=== PATIENT | male | born 1975 | race Caucasian/White ===

== ENCOUNTER 2018-01-25 12:21 | Inpatient (IN) | payer OTHER ==
[~2018-01-25] VITALS: Ht 190.5 cm; Wt 79.4 kg
--- NOTE | 2018-01-25 13:34 | ED PSYCHIATRIC COMPLAINT ---
History of Present Illness General Chief Complaint: General Adult Stated Complaint: BENZO WITHDRAWL Source: patient, family Exam Limitations: no limitations Vital Signs & Intake/Output Vital Signs & Intake/Output Vital Signs Date Time Temp Pulse Resp B/P B/P Pulse O2 O2 Flow FiO2 Mean Ox Delivery Rate 01/26 2044 98.1 88 20 144/79 01/26 2044 98.1 88 20 144/79 97 Room Air 01/25 1833 98.4 91 18 148/78 01/25 183 98.4 91 18 148/78 99 Room Air 01/25 1616 99.0 88 20 143/62 01/25 1616 99.0 88 20 143/62 96 Room Air 01/25 1442 98 Room Air 01/25 1229 97.8 105 20 159/105 96 Room Air Allergies Coded Allergies: NO KNOWN ALLERGIES (03/15/14) Reconcile Medications Albuterol Sulfate (Proventil Hfa) 90 MCG HFA.AER.AD 2 PUF INH Q4 PRN SHORTNESS OF BREATH (Reported) Budesonide/Formoterol Fumarate (Symbicort 160-4.5 Mcg Inhaler) 160 MCG-4.5 MCG/ ACTUATION HFA.AER.AD 2 PUF INH BID BREATHING PROBLEMS (Reported) Bupropion HCl (Bupropion XL) 150 MG TAB.ER.24H 1 TAB PO QAM MENTAL HEALTH ( Reported) Dextroamphetamine/Amphetamine (Dextroamp-Amphetamin 30 MG Tab) 30 MG TABLET 1 TAB PO BID MENTAL HEALTH (Reported) Triage Note: PT TO ED WITH GIRLFRIEND FOR BENZO DETOX. GIRLFRIEND STATES PT HAS BEEN HALLUCINATING AND CONFUSED. PT APPEARS SHAKY, FLIGHT OF IDEAS, HYPERVERBAL. PT WAS TAKING PRESCRIBED VALIUM FOR 10 YEARS UNTIL HIS PRESCRIBING MD LOST HIS PRIVILAGES. PT HAS BEEN TAKING A "BENZO SUPPLEMENT" HE BOUGHT OFF LINE. DENIES ANY OTHER DRUG USE, OR ETOH USE. DENIES SI/HI. Triage Nurses Notes Reviewed? yes Onset: Gradual Duration: getting worse Timing: recent history Severity: severe Severity Numbers: 7 HPI: Patient is a 42-year-old male with a past medical history of anxiety, ADHD and asthma who presents emergency room with cough and for concerns of benzodiazepine withdrawal where history is limited due to patient being a poor historian however both girlfriend and patient state that for over 10 years he was prescribed benzodiazepine for his anxiety however over a year ago his provider lost privileges to prescribed his medication where he started to begin supplementing and buying over the Internet ESTAZOLAM and which one week ago he tried to re-purchase this medication however the website no longer exists where patient has not been taking his medication where 3 days ago patient started to develop worsening anxiety, PALPITATIONS, intermittent auditory hallucinations tremors insomnia He states that the auditory hallucinations are telling him to harm himself Girlfriend also states that he has been acting strange and confirmed story Denies any alcohol use or any other illicit drug use Denies any homicidal ideation (Victor Manuel Walker) Past History Travel History Traveled to [place] past 21 day No Medical History Any Pertinent Medical History? see below for history Respiratory: asthma Psychiatric: anxiety, ADHD Surgical History Surgical History: non-contributory Psychosocial History What is your primary language [place] Tobacco Use: Current Daily Use Daily Tobacco Use Amount/Type: =< 4 Cigarettes daily ETOH Use: occasional use Illicit Drug Use: benzodiazepines Family History Hx Contributory? No (Victor Manuel Walker) Review of Systems Review of Systems Constitutional: Reports: no symptoms. EENTM: Reports: no symptoms. Respiratory: Reports: see HPI. Cardiovascular: Reports: see HPI. GI: Reports: no symptoms. Genitourinary: Reports: no symptoms. Musculoskeletal: Reports: no symptoms. Skin: Reports: no symptoms. Neurological/Psychological: Reports: see HPI, anxiety. Hematologic/Endocrine: Reports: no symptoms. Immunologic/Allergic: Reports: no symptoms. All Other Systems: Reviewed and Negative (Victor Manuel Walker) Physical Exam Physical Exam General Appearance: anxious Head: atraumatic Eyes: Bilateral: normal appearance, PERRL, EOMI. Ears, Nose, Throat: normal pharynx, normal ENT inspection Neck: normal inspection, full range of motion Respiratory: no respiratory distress Cardiovascular: tachycardia Neurological/Psychiatric: alert, anxious Appearance/Memory/Insight: disheveled Thoughts/Hallucinations: TANGENTIAL SPEECH Skin: intact, normal color SAD PERSONS SAD PERSONS Response Value Male Sex? yes 1 Excessive Ethanol/Drug Use? yes 1 Rational Thinking Loss? yes 2 Social Support? has support 0 Total 4 SAD PERSONS Done? yes (Victor Manuel Walker) Progress Differential Diagnosis: drug intoxication, drug overdose, drug withdrawal, electrolyte abnormality, encephalitis, hypoglycemia, hypothyroidism, IC hem/mass /tumor, meningitis Plan of Care: Orders Procedure Date/time Status Regular Diet 01/26 B Active CBC WITHOUT DIFFERENTIAL 01/26 06 Active BASIC ELECTROLYTES PLUS BUN&CR 01/26 06 Active PSYCHIATRIC CONSULT 01/25 2224 Active SOCIAL WORK CONSULT 01/25 222 Active CIWA 01/25 2215 Active Pathway - chart 01/25 221 Active House Staff 01/25 221 Active SOCIAL WORK CONSULT 01/25 221 Active Patient Data 01/26 2128 Active ED Holding Orders 01/25 1946 Active Admit to inpatient 01/25 194 Active Vital Signs 01/25 194 Active Code Status 01/25 194 Active ED CRISIS PSYCH CONSULT 01/25 1900 Active CIWA 01/25 1516 Active Add-on Test (ER Only) 01/25 1452 Active EKG 01/25 1452 Active Intake & Output 01/25 1442 Active TROPONIN LEVEL 01/25 1425 Complete URINE DRUG SCREEN FOR ER ONLY 01/25 1356 Complete ACETOMINOPHEN 01/25 1356 Complete SALICYLATE 01/25 1356 Complete ETHANOL 01/25 1356 Complete COMPREHENSIVE METABOLIC PANEL 01/25 1356 Complete CBC WITHOUT DIFFERENTIAL 01/25 1356 Complete VTE Mechanical Prophylaxis 01/25 UNK Active Vital Signs 01/25 UNK Active PSYCHIATRIC CONSULT 01/25 UNK Active Current Medications Sig/Jamey Start time Last Medication Dose Stop Time Status Admin Enoxaparin Sodium 40 MG DAILY 01/26 0900 AC (Lovenox) Diazepam 10 MG Q6 01/25 2359 UNVr (Valium) Clonidine 0.1 MG TID PRN 01/25 2230 UNVr (Catapres) Sodium Chloride 1,000 ML Q13H 01/25 2230 UNVr (Normal Saline 0.9%) 01/26 1129 Diazepam 10 MG ONCE ONE 01/25 194 CAN (Valium) 01/25 194 Laboratory Tests 01/25/18 1547: Urine Opiates Screen < 100, Methadone Screen 81, Barbiturate Screen < 60, Ur Phencyclidine Scrn < 6.00, Amphetamines Screen 518, U Benzodiazepines Scrn < 85, Urine Cocaine Screen < 50, Urine Cannabis Screen < 5.00 01/25/18 1425: Anion Gap 12, Estimated GFR > 60, BUN/Creatinine Ratio 26.3 H, Glucose 102 H, Calcium 9.5, Total Bilirubin 1.1, AST 66 H, ALT 31, Alkaline Phosphatase 49, Troponin I 0.04, Total Protein 7.8, Albumin 4.6, Globulin 3.2, Albumin/Globulin Ratio 1.4, CBC w Diff MAN DIFF ORDERED, RBC 4.19 L, MCV 98.3 H, MCH 33.5 H, MCHC 34.1, RDW 13.7, MPV 8.1, Gran % 87.6 H, Lymphocytes % 7.5 L, Monocytes % 4.6, Eosinophils % 0, Basophils % 0.3, Absolute Granulocytes 11.2 H, Absolute Lymphocytes 1.0 L, Absolute Monocytes 0.6, Absolute Eosinophils 0, Absolute Basophils 0, Platelet Estimate ADEQUATE, Normocytic RBCs VERIFIED, Normochromic RBCs VERIFIED, Salicylates < 1.0, Acetaminophen < 10.0 L, Serum Alcohol < 10.0 Patient upon initial presentation was anxious tachycardic and had tangential speech for concerns of withdrawal most likely benzodiazepines. After reevaluating the patient, the girlfriend states that she has been having intermittent episodes of auditory and visual hallucinations while in the emergency room in room 14. Reviewed all blood work and labs with patient and girlfriend NIH STROKE SCALE ZERO GAG REFLEX INTACT My suspicion of CVAs low CT scan was ordered however the time study technologist indicate that patient was having too much movements to get a valuable read and which they did not continue with the image. Case management reviewed the patient case in which Naomi approved admission for concerns of benzodiazepine withdrawal discussed admission with girlfriend and patient were aware agree Patient was given IV Ativan After patient was given IV Ativan his clinical condition worsens with more tangential speaking and wandering thoughts and which per history he has not taken his dextroamphetamine in a few days where I called the inpatient pharmacist who advised the equivalent IS Ritalin WHICH WILL BE ADMINISTERED. Crisis evaluated patient with psychiatrist indicates to the crisis team that they advised patient to be given Valium for the plan. Discussed plan and disposition with WHO IS AWARE AND AGREES. Initial ED EKG: normal p-waves, normal QRS complex, 82 BPM,NSR (Silas ESPARZA,Victor Manuel) Departure Departure Disposition: STILL A PATIENT Condition: Guarded Clinical Impression Primary Impression: Benzodiazepine withdrawal Secondary Impressions: Auditory hallucination Referrals: [facility],Hadley Cheema (PCP/Family) Departure Forms: Customer Survey General Discharge Information Admission Note Documentation of Exam: Documentation of any treatments & extenuating circumstances including Concerns Regarding Discharge (functional status, medication knowledge or non-compliance, living conditions, etc.) that warrant an admission rather than observation: [ Patient requires IV benzodiazepine psychiatric consultation case management consultation and repeat labs and close monitoring due to patient's concerning clinical presentation] (Victor Manuel Walker) Admission Note Spoke With: Christopher Mead MD Documentation of Exam: Documentation of any treatments & extenuating circumstances including Concerns Regarding Discharge (functional status, medication knowledge or non-compliance, living conditions, etc.) that warrant an admission rather than observation: [ ADMIT FOR BENZO DETOX IN ACTUE WITHDRAWAL WITH DELERIUM] PA/SENIOR UNIX ADMINISTRATOR Co-Sign Statement Statement: ED Attending supervision documentation- [X] I saw and evaluated the patient. I have also reviewed all the pertinent lab results and diagnostic results. I agree with the findings and the plan of care as documented in the PA's/SENIOR UNIX ADMINISTRATOR's documentation. X] I have reviewed the ED Record and agree with the PA's/SENIOR UNIX ADMINISTRATOR's documentation. [] Additions or exceptions (if any) to the PAs/SENIOR UNIX ADMINISTRATOR's note and plan are summarized below: [SEE ABOVE NOTE] ([facility],Dallas Foster) Critical Care Note Critical Care Note Critical Care Time: 30-74 min (Victor Manuel Walker)
[2018-01-25 14:32] LABS: ABSOLUTE BASOPHIL COUNT 0 /CUMM (0.0-0.2); ABSOLUTE EOSINOPHIL COUNT 0 /CUMM (0.0-0.7); ABSOLUTE GRANULOCYTE CT 11.2 /CUMM (1.4-6.5); ABSOLUTE MONOCYTE COUNT 0.6 /CUMM (0.10-0.60); BASOPHIL % 0.3 % (0.0-2.0); EOSINOPHIL % 0 % (0-5); GRANULOCYTE % 87.6 % (42.2-75.2); HEMATOCRIT 41.2 % (42-52); MEAN CORPUSCULAR HGB 33.5 PG (27.0-31.0); MEAN CORPUSCULAR HGB CONC 34.1 G/DL (33.0-37.0); MEAN CORPUSCULAR VOLUME 98.3 FL (80.0-94.0); MEAN PLATELET VOLUME 8.1 FL (7.4-10.4); PLATELET COUNT 265 /CUMM (130-400); RBC DISTRIBUTION WIDTH 13.7 % (11.5-14.5); RED BLOOD CELL CT 4.19 /CUMM (4.70-6.10); WHITE BLOOD CELL COUNT 12.8 /CUMM (4.8-10.8)
[2018-01-25] MEDS ORDERED: BUPROPION XL150 MG PO (14:33)
[2018-01-25] MEDS ORDERED: DEXTROAMP-AMPHE30 MG PO (14:33)
[2018-01-25] MEDS ORDERED: PROVENTIL HFA6.7 GM INH (14:34)
[2018-01-25] MEDS ORDERED: SYMBICORT 16010.2 GM INH (14:35)
[2018-01-25 16:16] VITALS: BP 143/62
--- NOTE | 2018-01-25 18:17 | CT SCAN REPORT ---
EXAMINATION: CT LIMITED OR FOLLOWUP CLINICAL INFORMATION: Altered mental status. Tangetial speaking. FINDINGS/TECHNIQUE/IMPRESSION: The patient was brought to the radiology Department for CT scan of the head. Lateral mechanical expert view of the head was obtained. Study could not be completed as patient was not able to cooperate, despite several attempts. Eventually the study was terminated for patient safety as per geospatial information technologist's notes. On mechanical expert image, reversal of cervical lordosis is noted.
[2018-01-25 18:33] VITALS: BP 148/78
--- NOTE | 2018-01-25 20:36 | History & Physical ---
Josephine Dodson 01/25/182030: General Information and HPI MD Statement: I have seen and personally examined CAMILA BECKER and documented this H& P. The patient is a 42 year old M who presented with a patient stated chief complaint of [Benzo withdrawal]. Source of Information: patient, family Exam Limitations: poor historian History of Present Illness: Mr. Sanchez is a 42yo M w/ PMH of asthma, ADHD/Anxiety, hx of chronic benzodiazepine use >10 years, questionable seizure disorder, presented to ER w/ visual/auditory hallucinations/not sleeping/SI that started about 4 days ago. He has been using Benzo >10 years and discontinued use due to his provider lost the privileges. After that he was trying to get alternative "benzo" online named Estazolam (1mg equivalent of 10mg Benzo per product description) for the past year until recently the online seller website closed down, and he had been off any Benzo for 1 week. Patient gradually developed tremors, anxiety, palpitations , insomnia, paranoia, diaphoresis, restlessless in the last 2 days, and was taken to ER. He appeared to be a poor historian during interaction and was not oriented to place, but to people and himself. Patient denied SI/HI although housestaff was told that he had SI upon ER presentation. Otherwise He had no other complaints. Part of history was taken from the girlfriend at bedside. During our clinical interaction, patient denied recent travel/sick contacts, fever/lightheadedness/night sweat/weight change/cough/SOB/Chest Pain/Abdominal pain/bowel movement or urinary abnormality, or other skin/musculoskeletal/ neurological/mood disorders, or dietary/appetite change. -Smoking: denied, but then stated to nurse that he was smoking 1PPD -Alcohol: denied -Rec Drugs: denied Allergies/Medications Allergies: Coded Allergies: NO KNOWN ALLERGIES (03/15/14) Home Med list Albuterol Sulfate (Proventil Hfa) 90 MCG HFA.AER.AD 2 PUF INH Q4 PRN SHORTNESS OF BREATH (Reported) Budesonide/Formoterol Fumarate (Symbicort 160-4.5 Mcg Inhaler) 160 MCG-4.5 MCG/ ACTUATION HFA.AER.AD 2 PUF INH BID BREATHING PROBLEMS (Reported) Bupropion HCl (Bupropion XL) 150 MG TAB.ER.24H 1 TAB PO QAM MENTAL HEALTH ( Reported) Dextroamphetamine/Amphetamine (Dextroamp-Amphetamin 30 MG Tab) 30 MG TABLET 1 TAB PO BID MENTAL HEALTH (Reported) Past History Travel History Traveled to [place] past 21 day No Medical History Respiratory: asthma Psychiatric: anxiety, ADHD Surgical History Surgical History: non-contributory Past Family/Social History Psychosocial History ETOH Use: occasional use Illicit Drug Use: benzodiazepines Review of Systems Review of Systems Constitutional: Reports: see HPI. Exam & Diagnostic Data Last 24 Hrs of Vital Signs/I&O Vital Signs Date Time Temp Pulse Resp B/P B/P Pulse O2 O2 Flow FiO2 Mean Ox Delivery Rate 01/25 1616 99.0 88 20 143/62 01/25 1616 99.0 88 20 14362 96 Room Air 01/25 1442 98 Room Air 01/25 1229 97.8 105 20 159/105 96 Room Air Intake & Output 01/25 1600 01/25 0800 01/25 0000 Intake Total 0 Output Total Balance 0 Intake, Oral 0 Patient 79.379 kg Weight Weight Estimated Measurement Method Physical Exam General Appearance Alert, Cooperative, No Acute Distress, appeared anxious and fidgty, oriented to self and people but not to setting Skin No Breakdown, No Significant Lesion, non-blanching rash on chest, attributed to shaving Skin Temp/Moisture Exam: Warm/Dry Sepsis Skin Exam (color): Normal for Ethnicity HEENT Atraumatic, PERRLA Neck Supple, No JVD Lymphatic Axillary nl, Cervical nl Cardiovascular Regular Rate Lungs Clear to Auscultation, Normal Air Movement Abdomen Normal Bowel Sounds, Soft, No Tenderness Neurological Strength at 5/5 X4 Ext, Normal Tone, Sensation Intact Extremities No Cyanosis, No Edema, Normal Pulses Last 24 Hrs of Labs/Hubert: Laboratory Tests 01/25/18 1547: Urine Opiates Screen < 100, Methadone Screen 81, Barbiturate Screen < 60, Ur Phencyclidine Scrn < 6.00, Amphetamines Screen 518, U Benzodiazepines Scrn < 85, Urine Cocaine Screen < 50, Urine Cannabis Screen < 5.00 01/25/18 1425: Anion Gap 12, Estimated GFR > 60, BUN/Creatinine Ratio 26.3 H, Glucose 102 H, Calcium 9.5, Total Bilirubin 1.1, AST 66 H, ALT 31, Alkaline Phosphatase 49, Troponin I 0.04, Total Protein 7.8, Albumin 4.6, Globulin 3.2, Albumin/Globulin Ratio 1.4, CBC w Diff MAN DIFF ORDERED, RBC 4.19 L, MCV 98.3 H, MCH 33.5 H, MCHC 34.1, RDW 13.7, MPV 8.1, Gran % 87.6 H, Lymphocytes % 7.5 L, Monocytes % 4.6, Eosinophils % 0, Basophils % 0.3, Absolute Granulocytes 11.2 H, Absolute Lymphocytes 1.0 L, Absolute Monocytes 0.6, Absolute Eosinophils 0, Absolute Basophils 0, Platelet Estimate ADEQUATE, Normocytic RBCs VERIFIED, Normochromic RBCs VERIFIED, Salicylates < 1.0, Acetaminophen < 10.0 L, Serum Alcohol < 10.0 Diagnostic Data EKG Results NSR w/ RBBB Assessment/Plan Assessment: On admission, Vitals: Stable afebrile, tachycardia 105 on presentation 96% on room air -CBC: Mild leukocytosis 12.8, H/H stable, -BMP: Unremarkable -Urine toxicology: Amphetamine 518 -EKG: NSR w/o significant ST-T abnormalities. Problem list/Assessment/Hospital Course: #Benzodiazepine detox #History of asthma, ADHD/anxiety #Mild leukocytosis, likely reactive #Questionable hx of seizure disorder (unknown type) - Admit to general medicine floor, vitals per protocol - Pending psych consult for management of ADHD/Benzo detox schedule - Pharm was contacted and we will start 10mg PO Valium q 6hours as no IV storage in hospital currently. WIll monitor for any sudden onset of clinical deterioration/symptoms - Clonidine PRN for tremors - Per CRISIS< will hold Ritalin or amphetamines as well during hospital stay. - Pending Social work consult - Sitter DVT prophylaxis Pharm PPX + ALPS Regular Diet Full Code As Ranked By This Provider Problem List: 1. Benzodiazepine withdrawal 2. Auditory hallucination Core Measures/Misc (05/10) Acute Coronary Syndrome ACS Diagnosis: No Congestive Heart Failure Congestive Heart Failure Diagnosis No Cerebrovascular Accident CVA/TIA Diagnosis: No VTE (View Protocol) VTE Risk Factors Age>40 No Mechanical VTE Prophylaxis d/t N/A MechProphylax Ordered No VTE Pharm Prophylaxis d/t NA PharmProphylax ordered Sepsis (View protocol) Sepsis Present: No If YES complete Sepsis Event Note If YES complete Sepsis Event Note Negar Valentine 01/26/18 0037: Core Measures/Misc (05/10) Sepsis (View protocol) If YES complete Sepsis Event Note If YES complete Sepsis Event Note Resident Review Statement Resident Statement: examined this patient, discussed with merchandising internship, agreed with merchandising internship, reviewed images Other Findings: Mr Becker is a 42 year old man w/ a PMHx of anxiety, chronic benzo use, asthma, ADHD, ? seizure disorder ( unclear type ) who was brought into the hospital with a chief concern of visual and auditory hallucinations that started a few days ago. He has been taking benzodiazepines over 10 years, and had to abruptly discontinue use due to his providers loss of privileges. Apparently, he has been taking an alternative synthetic benzo called estazolam for the past 1 year, that he bought it over the internet. Since, he couldnt find that drug anymore from the provider, he has not been taking any meds one week. He gradually developed, tremors, anxiety, palpitations, tremors, insomnia, paranoia , insomnia diaphoresis, which worsened in the last few days after which he was brought to the ER for benzowithdrawl. He lives with his girlfriend, who is also the chief historian. It was reported to have SI/HI, but did not have any SI/HI at the time of interview. Unclear about previous episode of seizure, but has not had a seizure in the last few days. No headache, visioin changes. Reported rashes on the torso and scalp, which he attribtes it to shaving. No history of head injury. No ivda, no alcohol or smoking. No fever, SOB, palpitations, no abdmominal pain. Reported difficutly urination, which he attribtes it to decreased po intake. At the time of admission-temperature 99.0, pulse rate 88, respiration 20, blood pressure 143/62, pulse ox 96% on room air. General Exam: Alert but AOx0, No acute distress, pacing in the room, flight of ideas. Skin: blanchable rashe on the upper part of chest, no breakdown;HEENT: unequal pupils, PERRLA, EOMI;Neck: Supple, No JVD;No cervical lymphadenopathy; CVS: Reg Rate, Normal S1,S2, No MGR;Resp: Normal air entry, no ronchi/rales; Abdomen: Soft, No tenderness, Normal Bowel Sounds;Neuro: Normal Speech, Strength 5/5 b/l x 4 extremities, Sensation intact, CN III-XII NL, Reflexes 2+; Extremities: No cyanosis, no pedal edema Pertinent lab findings: WBC 12.8, (87.6 granulocytes), hemoglobin 14.1, MCV 98.Platelet 265. Sodium 142, potassium 3.6, chloride 100, bicarbonate 29, anion gap 12. Renal function-BUN 21, creatinine 0.8, glucose 102. Liver chemistries-AST 66, ALT 31, alkaline phosphatase 49. Troponin 0.04. Toxicology revealed negative for urine opiates, methadone, Tylenol, benzodiazepine screen, cocaine, cannabis.CT scan head was limited given patient' s inability to stay still. He was given Ativan 2 mg IV, Ritalin 20 g by mouth once, diazepam 10 mg by mouth ( since there is no iv diazepam in house). Etiology in his case is benzodiazepine withdrawl which can be fatal, if not treated. He currently has typical symptoms of withdrawl, and should be treated w / diazepam. Unfortunately, we dont have iv diazepam, but the treatment is with iv diazepam and titrated to effect, and after symptoms are controlled, benzodiazepine should be tapered gradually over a period of months. Also, he has been taking, synthetic benzodiazepines are not detected in standard urine screening tests of drug of abuse; and most common benzodiazepine urine test identifies metabolites of benzodiazepines such as oxazepam only, and most of the utox might not detect clonazepam, lorazepam, midazolam, alprazolam. In regards to his ADHD, he was given Ritalin, due to unavailabity of the drug in house, which should be held at this time, as per psychiatrist ( winifred communicaiton w/ the surgical PA). Problem list: 1. Benzodiazepine withdrawl 2. history of anxiety 3. ? unclear history of seizures. 4. Mild leucocytosis-likely reactive. Plan: 1. Admit him to general medicine service the management of benzo withdrawl. 2. Supportive care 3. IVF with NS 75 ml/hr for one bag. 4. Psychiatry consult for the managent of ADHD. 5. Doses of 10 mg IV initially, and administer 10 mg every 6 hours schedule for now. 6. Clonidine for tremors. 7. Holld ritalin or amphetamines 8. Watch for any worsening mentation 9. Sitter 10. Social work consult DVT PPx- Lovenox sc Full code Diet- heart heathy diet [place] [facility], [facility] 01/26/18 0206: Core Measures/Misc (05/10) Sepsis (View protocol) If YES complete Sepsis Event Note If YES complete Sepsis Event Note Attending MD Review Statement Attending Statement Attending MD Statement: examined this patient, discuss w/resident/PA/CLINICAL PHYSICIAN ASSISTANT, agreed w/resident/PA/CLINICAL PHYSICIAN ASSISTANT, discussed with family, reviewed images, amended to note Attending Assessment/Plan: 42 yo M with h/o anxiety, ADD, chronic benzodiazepine dependence, asthma, ? seizure disorder, is brought in for concerns of benzodiazepine withdrawal. Patient was being prescribed diazepam for his anxiety by his provider ?PCP for over 10 years. About 1 year ago, provider lost his privileges which led the patient to buy Estazolam (synthetic benzo) online. However, for the past 1 week he had no access to this online medication and for past 3 days he has developed visual and auditory hallucinations, palpitations, severe anxiety, paranoia and insomnia. Per girlfriend, patient has been acting strange. Patient currently denies SI or HI. Patient reports erythematous itchy rash to his chest. Girlfriend reports these are on his clements area as well- which occur as he tends to shave very hard. Vitals stable. Exam: Awake, alert but not oriented. He has racing thoughts and a flight of ideas. Nonblanchable rash noted to upper chest, behind both ears and a few on upper forehead. Neck supple. Bruise noted to both knees. Otherwise unremarkable exam. Labs: WBC 12.8, macrocytosis, BUN 21, glucose 102, AST 66, Alcohol <10. Tylenol and salicylate levels negative. Urine tox positive for amphetamines and methadone. CT head was attempted but patient was not co-operative. Assessment and plan: 1. Benzodiazepine withdrawal 2. Severe anxiety 3. ADD - Admit to General medicine - Ativan given in ER worsened his clinical condition, will continue with diazepam. - Diazepam IV not available with pharmacy, will do 10 mg PO Q6 and then slow taper - Patient received Ritalin in the ER, as he had not taken his dextroamphetamine for a few days - Psych consult to help with further management - Add clonidine for tremors and palpitations as needed - Obtain CT head when able to - Check urinalysis and CXR, leukocytosis is probably reactive - Gentle IV hydration - Hold dextroamphetamine and wellbutrin - Maintain sitter protocol - Social work consult - Smoking cessation counseling, nicotine patch - Continue nebs and symbicort DVT ppx Lovenox. Full code.
[2018-01-25 20:44] VITALS: BP 144/79
[2018-01-25 23:31] VITALS: BP 130/74
[2018-01-26] VITALS (11 sets, daily range): BP systolic 120–142; BP diastolic 64–86
--- NOTE | 2018-01-26 00:19 | Admission Certification ---
Admission Certification Certification Statement - As attending physician, I certify that at the time of - admission, based on clinical presentation, severity of - symptoms, need for further diagnostic testing and - therapeutic interventions, and risk of adverse outcomes - without in-hospital treatment, in my clinical assessment, - this patient requires an acute hospital stay for a minimum - of two nights or longer. I have also considered psychsocial - factors such as support system, advanced age, financial - issues, cognitive issues, and failed out-patient treatments, - past re-admission history, safety of patient, and lack of - compliance as applicable. Specific rationale supporting this admission is: Benzodiazepine withdrawal.
[2018-01-26 08:09] LABS: ABSOLUTE BASOPHIL COUNT 0.1 /CUMM (0.0-0.2); ABSOLUTE EOSINOPHIL COUNT 0.2 /CUMM (0.0-0.7); ABSOLUTE GRANULOCYTE CT 3.7 /CUMM (1.4-6.5); ABSOLUTE LYMPH COUNT 1.9 /CUMM (1.2-3.4); ABSOLUTE MONOCYTE COUNT 0.5 /CUMM (0.10-0.60); BASOPHIL % 0.9 % (0.0-2.0); EOSINOPHIL % 2.4 % (0-5); GRANULOCYTE % 58.7 % (42.2-75.2); HEMATOCRIT 40.7 % (42-52); MEAN CORPUSCULAR HGB 33.2 PG (27.0-31.0); MEAN CORPUSCULAR HGB CONC 33.5 G/DL (33.0-37.0); MEAN CORPUSCULAR VOLUME 99.1 FL (80.0-94.0); PLATELET COUNT 194 /CUMM (130-400); RBC DISTRIBUTION WIDTH 13.7 % (11.5-14.5); RED BLOOD CELL CT 4.11 /CUMM (4.70-6.10); WHITE BLOOD CELL COUNT 6.4 /CUMM (4.8-10.8)
--- NOTE | 2018-01-26 08:33 | PN- Housestaff ---
See Addendum Subjective Follow-up For: psychosis, benzodiazepine withdrawal Tele-Events Since Last Visit: off telemetry Subjective: thought blocking, paranoia reports using schedule I drugs purchased over the internet symptoms of palpitations, and racing thoughts prior to arrival Review of Systems Constitutional: Reports: see HPI. Objective Last 24 Hrs of Vital Signs/I&O Vital Signs Date Time Temp Pulse Resp B/P B/P Pulse O2 O2 Flow FiO2 Mean Ox Delivery Rate 01/26 0718 98.4 77 20 142/86 97 Room Air 06/05 0312 98.2 78 20 130/86 95 Room Air 06/05 0247 130/74 06/04 2331 98.5 74 20 130/74 98 Room Air 06/04 2300 Room Air 06/ 2044 98.1 88 20 144/79 06/ 2044 98.1 88 20 144/79 97 Room Air 06/ 1833 98.4 91 18 148/78 06/04 1833 98.4 91 18 148/78 99 Room Air 06/04 1616 99.0 88 20 143/62 06/04 1616 99.0 88 20 143/62 96 Room Air 06/04 1442 98 Room Air 06/04 1229 97.8 105 20 159/105 96 Room Air Intake & Output / 1600 06/05 0800 06/05 0000 Intake Total 930 Output Total Balance 930 Intake, IV 450 Intake, Oral 480 Number 0 Bowel Movements Patient 79.379 kg Weight Weight Reported by Patient Measurement Method Physical Exam General Appearance: Alert, Oriented X3, Cooperative, No Acute Distress, paranoia Cardiovascular: Regular Rate, Normal S1, Normal S2, No Murmurs Lungs: Clear to Auscultation, Normal Air Movement Abdomen: Normal Bowel Sounds, Soft, No Tenderness, No Masses Extremities: No Clubbing, No Cyanosis, No Edema, Normal Pulses Current Medications: Current Medications Sig/Jamey Start time Last Medication Dose Route Stop Time Status Admin Clonidine 0.1 MG TID PRN 01/25 2230 AC 01/26 PO 0247 Diazepam 10 MG TID PRN 01/26 1130 UNVr PO Diazepam 10 MG Q6 01/25 2359 AC 01/26 PO 1101 Diazepam 10 MG ONCE ONE 01/25 2015 DC 01/25 PO 01/25 Diazepam 0 .STK-MED ONE 01/25 1958 DC PO Diazepam 10 MG ONCE ONE 01/25 194 CAN IV 01/25 194 Enoxaparin Sodium 40 MG DAILY 01/26 0900 01/26 SC 0745 Lorazepam 0 .STK-MED ONE 01/25 1654 DC .ROUTE Lorazepam 2 MG ONE ONE 01/25 1500 DC 01/25 IV 01/25 1501 1648 Methylphenidate HCl 20 MG ONCE ONE 01/25 1830 DC 01/25 PO 01/25 1831 1850 Nicotine 7 MG DAILY 01/26 09 01/26 TOP 0254 Sodium Chloride 1,000 ML Q13H 01/25 2230 AC 01/26 IV 01/26 1129 0031 Last 24 Hrs of Lab/Hubert Results Last 24 Hrs of Labs/Mics: Laboratory Tests 01/26/18 0655: Anion Gap 12, Estimated GFR > 60, BUN/Creatinine Ratio 21.3, CBC w Diff NO MAN DIFF REQ, RBC 4.11 L, MCV 99.1 H, MCH 33.2 H, MCHC 33.5, RDW 13.7, MPV 9.0, Gran % 58.7, Lymphocytes % 30.0, Monocytes % 8.0, Eosinophils % 2.4, Basophils % 0.9, Absolute Granulocytes 3.7, Absolute Lymphocytes 1.9, Absolute Monocytes 0.5 , Absolute Eosinophils 0.2, Absolute Basophils 0.1 01/25/18 1547: Urine Opiates Screen < 100, Methadone Screen 81, Barbiturate Screen < 60, Ur Phencyclidine Scrn < 6.00, Amphetamines Screen 518, U Benzodiazepines Scrn < 85, Urine Cocaine Screen < 50, Urine Cannabis Screen < 5.00 01/25/18 1425: Anion Gap 12, Estimated GFR > 60, BUN/Creatinine Ratio 26.3 H, Glucose 102 H, Calcium 9.5, Total Bilirubin 1.1, AST 66 H, ALT 31, Alkaline Phosphatase 49, Troponin I 0.04, Total Protein 7.8, Albumin 4.6, Globulin 3.2, Albumin/Globulin Ratio 1.4, CBC w Diff MAN DIFF ORDERED, RBC 4.19 L, MCV 98.3 H, MCH 33.5 H, MCHC 34.1, RDW 13.7, MPV 8.1, Gran % 87.6 H, Lymphocytes % 7.5 L, Monocytes % 4.6, Eosinophils % 0, Basophils % 0.3, Absolute Granulocytes 11.2 H, Absolute Lymphocytes 1.0 L, Absolute Monocytes 0.6, Absolute Eosinophils 0, Absolute Basophils 0, Platelet Estimate ADEQUATE, Normocytic RBCs VERIFIED, Normochromic RBCs VERIFIED, Salicylates < 1.0, Acetaminophen < 10.0 L, Serum Alcohol < 10.0 Assessment/Plan Assessment: 42 year old male with pmh of benzodiazepine dependence, asthma, possibly ADHD, seizure disorder, presented with complaints of palpitations and racing thoughts Acute psychosis in the setting of benzodiazepine withdrawal Psychiatry consultation regarding antipsychotic medications Continue 10mg PO Valium [id number] + 10mg po valium tid prn for further symptoms Discontinue CIWA monitoring protocol, unreliable during psychosis Clonidine PRN for tremors No stimulants or amphetamines Social work consult Continue patient safety monitor Continue wellbutrin 150mg daily Regular Diet DVT ppx-lovenox subcutaneous Full Code Problem List: 1. Benzodiazepine withdrawal 2. Auditory hallucination Pain Ratin Pain Location: n/a Pain Goal: Pain 4 or less Pain Plan: prn Tomorrow's Labs & Rationales: none
--- NOTE | 2018-01-26 10:52 | Cons- Psychiatry ---
Psychiatric Consult Date of Consult: 01/26/18 Reason for Consult: psychosis 2/2 benzo withdrawal Allergies: Coded Allergies: NO KNOWN ALLERGIES (03/15/14) Past History Past Medical History Neurological: NONE EENT: NONE Cardiovascular: NONE Respiratory: asthma Gastrointestinal: NONE Hepatic: NONE Renal: NONE Musculoskeletal: NONE Psychiatric: anxiety, ADHD Endocrine: NONE Blood Disorders: NONE Cancer(s): NONE TELECOMMUNICATIONS NETWORK ENGINEER/Reproductive: NONE Past Surgical History Surgical History: non-contributory Assessment/Plan Impression: This is a 42 y/o M with past history depression anxiety who presented with mental status change. Pt was apparently on chronic valium for an anxiety disorder and his doctor lost privileges. Pt began getting etizolam online and the website went down. Per GF he experienced typical BZD WD symptoms and then began acting bizarrely with AH and VH. Ed Course: Hypertensive and tachycardic. AH and VH. Nonsensical. Received Ativan with worsening response then diazepam. Received amphetamine. Utox - Laboratory Tests 01/26/18 0655: Anion Gap 12, Estimated GFR > 60, BUN/Creatinine Ratio 21.3, CBC w Diff NO MAN DIFF REQ, RBC 4.11 L, MCV 99.1 H, MCH 33.2 H, MCHC 33.5, RDW 13.7, MPV 9.0, Gran % 58.7, Lymphocytes % 30.0, Monocytes % 8.0, Eosinophils % 2.4, Basophils % 0.9, Absolute Granulocytes 3.7, Absolute Lymphocytes 1.9, Absolute Monocytes 0.5 , Absolute Eosinophils 0.2, Absolute Basophils 0.1 01/25/18 1547: Urine Opiates Screen < 100, Methadone Screen 81, Barbiturate Screen < 60, Ur Phencyclidine Scrn < 6.00, Amphetamines Screen 518, U Benzodiazepines Scrn < 85, Urine Cocaine Screen < 50, Urine Cannabis Screen < 5.00 01/25/18 1425: Anion Gap 12, Estimated GFR > 60, BUN/Creatinine Ratio 26.3 H, Glucose 102 H, Calcium 9.5, Total Bilirubin 1.1, AST 66 H, ALT 31, Alkaline Phosphatase 49, Troponin I 0.04, Total Protein 7.8, Albumin 4.6, Globulin 3.2, Albumin/Globulin Ratio 1.4, CBC w Diff MAN DIFF ORDERED, RBC 4.19 L, MCV 98.3 H, MCH 33.5 H, MCHC 34.1, RDW 13.7, MPV 8.1, Gran % 87.6 H, Lymphocytes % 7.5 L, Monocytes % 4.6, Eosinophils % 0, Basophils % 0.3, Absolute Granulocytes 11.2 H, Absolute Lymphocytes 1.0 L, Absolute Monocytes 0.6, Absolute Eosinophils 0, Absolute Basophils 0, Platelet Estimate ADEQUATE, Normocytic RBCs VERIFIED, Normochromic RBCs VERIFIED, Salicylates < 1.0, Acetaminophen < 10.0 L, Serum Alcohol < 10.0 Current Medications Sig/Jamey Start time Last Medication Dose Stop Time Status Admin Enoxaparin Sodium 40 MG DAILY 01/26 0900 AC 01/26 (Lovenox) 0745 Nicotine 7 MG DAILY 01/26 0900 AC 01/26 (Nicotine Cq) 0254 Diazepam 10 MG Q6 01/25 2359 AC 01/26 (Valium) 0620 Clonidine 0.1 MG TID PRN 01/25 2230 AC 01/26 (Catapres) 0247 Sodium Chloride 1,000 ML Q13H 01/25 2230 AC 01/26 (Normal Saline 0.9%) 01/26 1129 0031 Diazepam 10 MG ONCE ONE 01/25 194 CAN (Valium) 01/25 194 Vital Signs Date Time Temp Pulse Resp B/P B/P Pulse O2 O2 Flow FiO2 Mean Ox Delivery Rate 01/26 0718 98.4 77 20 142/86 97 Room Air /05 0312 98.2 78 20 130/86 95 Room Air 06/05 0247 130/74 / 2331 98.5 74 20 130/74 98 Room Air /04 2300 Room Air 06/04 2044 98.1 88 20 144/79 06/04 2044 98.1 88 20 144/79 97 Room Air 06/04 1833 98.4 91 18 148/78 06/04 1833 98.4 91 18 148/78 99 Room Air 06/04 1616 99.0 88 20 143/62 06/04 1616 99.0 88 20 143/62 96 Room Air 06/04 1442 98 Room Air 06/04 1229 97.8 105 20 159/105 96 Room Air PPHx: Reports depression and anxiety. Presumable ADHD. FH: Not obtainable SH: Girlfriend Aiyana. Live together in [place]. Reports he did some college. Meds: NO KNOWN ALLERGIES (03/15/14) Home Med list Albuterol Sulfate (Proventil Hfa) 90 MCG HFA.AER.AD 2 PUF INH Q4 PRN SHORTNESS OF BREATH (Reported) Budesonide/Formoterol Fumarate (Symbicort 160-4.5 Mcg Inhaler) 160 MCG-4.5 MCG/ ACTUATION HFA.AER.AD 2 PUF INH BID BREATHING PROBLEMS (Reported) Bupropion HCl (Bupropion XL) 150 MG TAB.ER.24H 1 TAB PO QAM MENTAL HEALTH ( Reported) Dextroamphetamine/Amphetamine (Dextroamp-Amphetamin 30 MG Tab) 30 MG TABLET 1 TAB PO BID MENTAL HEALTH (Reported) On exam, pt is drowsy but arousable to voice. Eyes injected. Awakens and makes nonsensical statements. He is disoriented but able to answer some concrete questions. I reoriented him to where he is and why as he thinks he's in [place]. Speech and thought are disorganized. Feels anxious. Endorses years of use of diazepam and buying etizolam offline and having to abruptly stop. A/ 42 y/o M with delirium, delusions and hallucinations 2/2 benzo withdrawal. P/ -I spoke with poison control. Etizolam is a benzo analogue. -Sedate him with diazepam to drowsy state. 10 mg QID with 5 mg prn TID. Monitor vitals closely as CIWA will be unreliable due to his disorientation. I would dose the prn if his vitals bump. -Low threshold for transfer to ICU with any signs of decompensation -No antipsychotics at this time until we see how he evolves -Dont use ativan he apparently did not respond well to it in the ED -MCV is high ?etoh JScruggsMD #100 Page with any questions.
[2018-01-27 06:32] VITALS: BP 130/80
--- NOTE | 2018-01-27 07:03 | PN- Housestaff ---
Hadley Dozier MD 01/27/18 0702: Subjective Follow-up For: psychosis benzodiazepine withdrawal/dependence Subjective: no complaints, more calm than yesterday, less overt paranoia slept throughout the night after receieving a total of 4mg iv ativan was given toradol 30mg iv x 1 for lumbar back pain Review of Systems Constitutional: Reports: see HPI. Objective Last 24 Hrs of Vital Signs/I&O Vital Signs Date Time Temp Pulse Resp B/P B/P Pulse O2 O2 Flow FiO2 Mean Ox Delivery Rate 01/27 0632 98.3 68 20 130/80 98 Room Air / 2203 98.2 78 20 120/82 96 Room Air / 2200 98.2 78 20 120/82 /2000 98.5 84 20 132/78 97 Room Air / 2000 98.3 84 20 132/78 06/05 1845 98.2 79 20 136/64 06/05 1754 98.2 79 20 136/64 98 Room Air / 1607 98.6 88 20 130/82 98 Room Air / 1600 98.6 88 20 130/83 06/05 1429 98.2 81 20 134/80 98 Room Air Intake & Output 01/27 1600 06/06 0800 06/06 0000 Intake Total 300 422 Output Total 400 450 Balance -100 -28 Intake, IV 22 Intake, Oral 300 400 Number 0 Bowel Movements Output, Urine 400 450 Physical Exam General Appearance: Alert, Cooperative, No Acute Distress Cardiovascular: Regular Rate, Normal S1, Normal S2, No Murmurs Lungs: Clear to Auscultation, Normal Air Movement Abdomen: Normal Bowel Sounds, Soft, No Tenderness, No Masses Extremities: No Clubbing, No Cyanosis, No Edema, Normal Pulses Assessment/Plan Assessment: 42 year old male with pmh of benzodiazepine dependence, asthma, possibly ADHD, seizure disorder, presented with complaints of palpitations and racing thoughts Acute psychosis in the setting of benzodiazepine withdrawal Psychiatry consultation regarding antipsychotic medications, follow up recommendations Continue 10mg PO Valium [id number] + ativan prn for breakthrough symptoms Discontinue CIWA monitoring protocol, unreliable during psychosis No stimulants or amphetamines Continue patient safety monitor Will discuss starting anxiolytics with psychiatry Regular Diet DVT ppx-lovenox subcutaneous Full Code Problem List: 1. Benzodiazepine withdrawal 2. Auditory hallucination 3. Psychosis, paranoid Pain Ratin Pain Location: n/a Pain Goal: Pain 4 or less Pain Plan: tylenol prn Tomorrow's Labs & Rationales: none Ashanti Contreras MD 01/27/18 1236: Attending MD Review Statement Attending Statement Attending MD Statement: examined this patient, discuss w/resident/PA/DISCHARGE DOOR OPERATOR, agreed w/resident/PA/DISCHARGE DOOR OPERATOR, discussed with family, reviewed EMR data (avail), discussed with nursing, discussed with case mgmt, reviewed images, amended to note Attending Assessment/Plan: Patient seen and examined. No issues overnight reported by nursing staff. Remains afebrile and hemodynamically stable. Resting comfortably and not in any acute distress. Patient apparently selected very well. He did not require more than 2 doses of as needed Ativan yesterday he has done very well on the oral failure instructed by the psychiatry service yesterday. This morning he was sleepy but arousable. Very calm. He did not appear psychotic compared to yesterday. Continue his current regimen. Follow-up with the psychiatric service regarding tapering of his benzodiazepine therapy particularly the time over which this will be done. Transaminase levels mildly elevated on admission. Denies any abdominal pain. Repeat LFTs with labs tomorrow. If still elevated obtain right upper quadrant sonogram.
--- NOTE | 2018-01-27 14:06 | Incdntl Nt Psy ---
Incidental Note Notation: Would taper pt's diazepam to 7 mg QID tomorrow. Would add back CIWA since pt is more coherent. JScruggsMD #100 Page with any questions.
[2018-01-27 14:52] VITALS: BP 100/71
--- NOTE | 2018-01-27 15:22 | PN- Psychiatry ---
Assessment/Plan Impression: Spoke with pt, gf is bedside. He is much improved in terms of orientation and cognition. Admits he was taking more etizolam than "they said to." We discussed his taper in the hospital and that he needs to follow up with outpatient psych to have a prescriber and to continue to taper his medication. He is amenable. No safety issues. Current Medications Sig/Jamey Start time Last Medication Dose Route Stop Time Status Admin Acetaminophen 650 MG Q6-PRN PRN 01/27 1045 AC PO Clonidine 0.1 MG TID PRN 01/25 2230 DC 01/26 PO 0247 Diazepam 7.5 MG Q6 01/27 1800 AC PO Diazepam 10 MG TIDPRN PRN 01/26 1130 DC 01/26 PO 1525 Diazepam 10 MG Q6 01/25 2359 DC 01/27 PO 1041 Enoxaparin Sodium 40 MG DAILY 01/26 0900 01/27 SC 0913 Ketorolac 30 MG ONCE ONE 01/27 1045 KS 01/27 Tromethamine IV 01/27 1046 1041 Lorazepam 2 MG Q2P PRN 01/26 1600 AC 01/26 IV 2222 Nicotine 7 MG DAILY 01/26 0900 01/27 TOP 0914 Patient Medication 1 ED ONE ONE 01/27 1100 KS Teaching ED 01/27 1101 Patient Medication 1 ED ONE ONE 01/26 1645 KS Teaching ED 01/26 1646 On exam pt is in bed in gown disheveled drowsy but arousable to voice. Mildly sedated. Oriented to place and year. No movement abnormalities. Speech is clear and goal-directed. Feels OK. Affect is blunted. Thoughts are logical and linear. Content regards his benzo dosing, no delusions or response to internal stim. Insight is limited, judgment appears fair he is willing to follow up and taper his BZD. A/ 42 y/o M here with benzo dependence in withdrawal. Detox is evolving well. P/ -Diazepam to 7 mg QID tomorrow. (20% reduction of total intake daily) Would give oral diazepam 5 mg TID prn. He does not need IV meds now that he can take po and is oriented. Oral meds will last longer. CIWA. -We will watch his clinical status to determine further taper but if he tolerates 7 mg QID tomorrow will most likely taper him to 5 mg QID the next day. -Follow up with OPS I will schedule the intake. JScruggsMD #100 Page with any questions. Suggestion: see imp Subjective Subjective: see imp Objective Last 24 Hrs of Vital Signs/I&O Vital Signs Date Time Temp Pulse Resp B/P B/P Pulse O2 O2 Flow FiO2 Mean Ox Delivery Rate 01/27 1452 98.6 86 20 100/71 99 Room Air 01/27 0632 98.3 68 20 130/80 98 Room Air 06/ 2203 98.2 78 20 120/82 96 Room Air 06/05 2200 98.2 78 20 120/82 01/26 2001 98.5 84 20 132/78 97 Room Air / 2000 98.3 84 20 132/78 / 1845 98.2 79 20 136/64 06/ 1754 98.2 79 20 136/64 98 Room Air 06/05 1607 98.6 88 20 130/82 98 Room Air / 1600 98.6 88 20 130/83 Intake & Output 01/27 1600 01/27 0800 01/27 0000 Intake Total 850 300 422 Output Total 650 400 450 Balance 200 -100 -28 Intake, IV 22 Intake, Oral 850 300 400 Number 0 Bowel Movements Output, Urine 650 400 450
[2018-01-27 21:42] VITALS: BP 128/78
[2018-01-28 06:42] VITALS: BP 120/70
--- NOTE | 2018-01-28 07:10 | PN- Housestaff ---
See Addendum Subjective Follow-up For: psychosis benzodiazepine dependence and withdrawal Subjective: slept well, off IV benzodiazepines mentation clearing, no signs or symptoms of psychosis Review of Systems Constitutional: Reports: see HPI. Objective Last 24 Hrs of Vital Signs/I&O Vital Signs Date Time Temp Pulse Resp B/P B/P Pulse O2 O2 Flow FiO2 Mean Ox Delivery Rate 01/28 0642 98.8 78 20 120/70 95 Room Air 01/27 2142 97.5 82 18 128/78 97 Room Air 01/27 1452 98.6 86 20 100/71 99 Room Air Intake & Output 01/28 0800 01/28 0000 01/27 1600 Intake Total 480 240 850 Output Total 400 650 Balance 80 240 200 Intake, Oral 480 240 850 Output, Urine 400 650 Physical Exam General Appearance: Alert, Oriented X3, Cooperative, No Acute Distress Cardiovascular: Regular Rate, Normal S1, Normal S2, No Murmurs Lungs: Clear to Auscultation, Normal Air Movement Abdomen: Normal Bowel Sounds, Soft, No Tenderness, No Masses Extremities: No Clubbing, No Cyanosis, No Edema, Normal Pulses Current Medications: Current Medications Sig/Jamey Start time Last Medication Dose Route Stop Time Status Admin Acetaminophen 650 MG Q6-PRN PRN 01/27 1045 PO Clonidine 0.1 MG TID PRN 01/25 2230 IN 01/26 PO 0247 Diazepam 7.5 MG Q6 01/27 1800 AC 01/28 PO 0653 Diazepam 5 MG TID PRN 01/27 1615 AC 01/27 PO 1652 Diazepam 10 MG Q6 01/25 2359 DC 01/27 PO 1041 Enoxaparin Sodium 40 MG DAILY 01/26 0900 01/27 SC 0913 Ketorolac 30 MG ONCE ONE 01/27 1045 DC 01/27 Tromethamine IV 01/27 1046 1041 Lorazepam 2 MG Q2P PRN 01/26 1600 DC 01/26 IV 2222 Nicotine 7 MG DAILY 01/26 0900 01/27 TOP 0914 Patient Medication 1 ED ONE ONE 01/27 1100 DC 01/27 Teaching ED 01/27 1101 1652 Last 24 Hrs of Lab/Hubert Results Last 24 Hrs of Labs/Mics: Laboratory Tests 01/28/18 0653: Sodium Pending, Potassium Pending, Chloride Pending, Carbon Dioxide Pending, Anion Gap Pending, BUN Pending, Creatinine Pending, BUN/Creatinine Ratio Pending , Total Bilirubin Pending, Direct Bilirubin Pending, AST Pending, ALT Pending, Alkaline Phosphatase Pending, Total Protein Pending, Albumin Pending Assessment/Plan Assessment: 42 year old male with pmh of benzodiazepine dependence, asthma, possibly ADHD, seizure disorder, presented with complaints of palpitations, racing thoughts, thought blocking, and treated for acute paranoid psychosis. Acute psychosis in the setting of benzodiazepine withdrawal Psychiatry consultation regarding antipsychotic medications, follow up recommendations PO Valium reduced to 7.5 [id number] + 5mg TID prn Plan to reduce to 5mg q6h tomorrow with further taper as an outpatient Renewed CIWA monitoring, No stimulants or amphetamines Plan to discontinue patient safety monitor and start SSRI in consultation with psychiatry Will need outpatient psychiatry follow up and benzodiazepine taper Patient inquired about his prescription amphetamine medications that were discontinued Regular Diet DVT ppx-lovenox subcutaneous Full Code Problem List: 1. Psychosis, paranoid 2. Auditory hallucination 3. Benzodiazepine withdrawal Pain Ratin Pain Location: n/a Pain Goal: Pain 4 or less Pain Plan: prn Tomorrow's Labs & Rationales: none
[2018-01-28] MEDS ORDERED: VALIUM5 M2 PO (07:50)
--- NOTE | 2018-01-28 10:19 | PN- Psychiatry ---
Assessment/Plan Impression: 01/28 Psych MD Follow Up Saw Elijah this am he was apparently itching to leave. We discussed his benzo taper and that he needs to monitored here today before we transition him to outpatient care. He is amenable to starting other meds for his anxiety. States he took mescaline which someone told him was similar to etizolam. No hallucinations now. He has no safety issues and is amenable to outpatient treatment at [facility]. CIWA scores 0. VSS. Vital Signs Date Time Temp Pulse Resp B/P B/P Pulse O2 O2 Flow FiO2 Mean Ox Delivery Rate 01/28 0642 98.8 78 20 120/70 95 Room Air 01/27 2142 97.5 82 18 128/78 97 Room Air 01/27 1452 98.6 86 20 100/71 99 Room Air Current Medications Sig/Jamey Start time Last Medication Dose Route Stop Time Status Admin Acetaminophen 650 MG Q6-PRN PRN 01/27 1045 AC PO Clonidine 0.1 MG TID PRN 01/25 2230 DC 01/26 PO 0247 Diazepam 7.5 MG Q6 01/27 1800 AC 01/28 PO 0653 Diazepam 5 MG TID PRN 01/27 1615 AC 01/27 PO 1652 Diazepam 10 MG Q6 01/25 2359 DC 01/27 PO 1041 Enoxaparin Sodium 40 MG DAILY 01/26 0900 01/28 SC 0815 Ketorolac 30 MG ONCE ONE 01/27 1045 DC 01/27 Tromethamine IV 01/27 1046 1041 Lorazepam 2 MG Q2P PRN 01/26 1600 DC 01/26 IV 2222 Nicotine 7 MG DAILY 01/26 0900 01/28 TOP 0815 Patient Medication 1 ED ONE ONE 01/27 1100 DC 01/27 Teaching ED 01/27 1101 1652 On exam, Elijah is in bed in NAD. Alert and oriented. No motor abnormalities. Speech clear and goal directed with relevant answers. No more JEN. No AH VH or delusions. Mood is good and affect is congruent. Insight is improved and good judgment to follow up with op care. A/ 42 y/o male with mood and anxiety d/o, benzo dependence who came in hallucinating and in apparent BZD withdrawal from online BZD etizolam. Now admits to possible hallucinogen use on top of abrupt discontinuation of etizolam (which fits better with his clinical picture.) Evolving on taper well. P/ -D/c sitter -If stable today would taper him to 10 mg po BID tomorrow and he can be discharged -Start lexapro 10 mg qDaily -Start buspar 5 mg BID -Outpatient intake at 8:15 am February 09 at [address] with Alicia, NON LICENSED NUCLEAR PLANT OPERATOR JScruggsMD #[phone] Please page with any questions. Suggestion: see imp Subjective Subjective: see imp Objective Last 24 Hrs of Vital Signs/I&O Vital Signs Date Time Temp Pulse Resp B/P B/P Pulse O2 O2 Flow FiO2 Mean Ox Delivery Rate 01/28 0642 98.8 78 20 120/70 95 Room Air 01/27 2142 97.5 82 18 128/78 97 Room Air 01/27 1452 98.6 86 20 100/71 99 Room Air Intake & Output 01/28 1600 01/28 0800 01/28 0000 Intake Total 480 240 Output Total 400 Balance 80 240 Intake, Oral 480 240 Output, Urine 400
[2018-01-28] MEDS ORDERED: VALIUM10 M1 PO (11:25)
[2018-01-28] MEDS ORDERED: BUSPIRONE HCL5 M1 PO (11:25)
[2018-01-28] MEDS ORDERED: LEXAPRO10 M1 PO (11:25)
[2018-01-28 14:27] VITALS: BP 120/74
[2018-01-28 15:22] VITALS: BP 130/80
[2018-01-28 16:00] VITALS: BP 130/80
[2018-01-28 22:22] VITALS: BP 138/80
[2018-01-29 06:41] VITALS: BP 140/90
--- NOTE | 2018-01-29 07:09 | PN- Housestaff ---
See Addendum Subjective Follow-up For: acute psychosis benzodiazepine dependence and withdrawal Subjective: no more psychotic or withdrawal symptoms slept well overnight awaiting discharge Review of Systems Constitutional: Reports: see HPI. Objective Last 24 Hrs of Vital Signs/I&O Vital Signs Date Time Temp Pulse Resp B/P B/P Pulse O2 O2 Flow FiO2 Mean Ox Delivery Rate 01/29 0641 98.3 76 20 140/90 97 Room Air 01/28 2222 98.7 75 18 138/80 95 Room Air 06/ 1600 82 18 130/80 06/ 1522 82 18 130/80 97 Room Air / 1427 97.9 90 20 120/74 97 Room Air Intake & Output 01/29 1600 01/29 0800 01/29 0000 Intake Total 720 Output Total Balance 720 Intake, Oral 720 Physical Exam General Appearance: Alert, Oriented X3, Cooperative, No Acute Distress Cardiovascular: Regular Rate, Normal S1, Normal S2, No Murmurs Lungs: Clear to Auscultation, Normal Air Movement Abdomen: Normal Bowel Sounds, Soft, No Tenderness, No Masses Extremities: No Clubbing, No Cyanosis, No Edema, Normal Pulses Current Medications: Current Medications Sig/Jamey Start time Last Medication Dose Route Stop Time Status Admin Acetaminophen 650 MG .STK-MED ONE 01/29 1940 DC PO 01/28 194 Acetaminophen 650 MG Q6-PRN PRN 01/27 1045 AC 01/28 PO 1941 Albuterol Sulfate 2 PUF Q4P PRN 01/28 1100 AC INH Bismuth Subsalicylate 30 ML ONCE ONE 01/28 194 DC 01/28 PO 01/28 1946 2125 Budesonide/ 2 PUF BID 01/28 1052 AC 01/28 Formoterol Fumarate INH 2125 Buspirone HCl 5 MG BID 01/28 1121 AC 01/28 PO 2125 Diazepam 10 MG BID 01/29 0900 AC PO Diazepam 7.5 MG Q6 01/27 1800 DC 01/28 PO 01/29 0100 2315 Diazepam 5 MG TID PRN 01/27 1615 DC 01/27 PO 1652 Enoxaparin Sodium 40 MG DAILY 01/26 900 AC 01/28 SC 0815 Escitalopram Oxalate 10 MG DAILY 01/28 1121 AC 01/28 PO 1230 Nicotine 7 MG DAILY 01/26 900 AC 01/28 TOP 0815 Patient Medication 1 ED ONE ONE 01/28 1645 [facility] ED 01/28 1646 Assessment/Plan Assessment: 42 year old male with pmh of benzodiazepine dependence, asthma, possibly ADHD, seizure disorder, presented with complaints of palpitations, racing thoughts, thought blocking, and treated for acute paranoid psychosis. Acute psychosis in the setting of benzodiazepine withdrawal Valium 10mg PO BID, plan to taper as an outpatient Psychosis resolved, CIWA remains 0 No stimulants or amphetamines Continue lexapro 10mg and buspar 5mg po bid Outpatient psychiatry follow up, 8:15 am February 09 at [address] Jacqueline Teixeira, MID WIFE Regular Diet DVT ppx-lovenox subcutaneous Full Code Stable for discharge Problem List: 1. Psychosis, paranoid 2. Benzodiazepine withdrawal 3. Auditory hallucination Pain Ratin Pain Location: n/a Pain Goal: Pain 4 or less Pain Plan: prn Tomorrow's Labs & Rationales: none, discharge
--- NOTE | 2018-01-29 07:10 | Patient Discharge Instructions ---
Discharge Instructions General Discharge Information You were seen/treated for: psychosis benzodiazepine dependence and withdrawal Special Instructions: Please follow up with your primary care physician and outpatient psychiatry. You were given a follow up appointment at [facility], 8:15 am February 09 at [address] with Harriet Teixeira LCSW Acute Coronary Syndrome Inclusion Criteria At DC or during hospital stay patient has or had the following: ACS DIAGNOSIS No Discharge Core Measures Meds if any: Prescribed or Continued at Discharge Meds if any: NOT Prescribed or Continued at Discharge Congestive Heart Failure Inclusion Criteria At DC or during hospital stay patient has or had the following: CHF DIAGNOSIS No Discharge Core Measures Meds if any: Prescribed or Continued at Discharge Meds if any: NOT Prescribed or Continued at Discharge Cerebrovascular accident Inclusion Criteria At DC or during hospital stay patient has or had the following: CVA/TIA Diagnosis No Discharge Core Measures Meds if any: Prescribed or Continued at Discharge Meds if any: NOT Prescribed or Continued at Discharge Venous thromboembolism Inclusion Criteria VTE Diagnosis No VTE Type NONE VTE Confirmed by (Test) NONE Discharge Core Measures - Per Current guidelines, there needs to be overlap - treatment for the first 5 days of Warfarin therapy. - If discharged on Warfarin prior to 5 days of - overlap therapy, the patient will need to be - assessed for post discharge needs including - *Post discharge parental anticoagulation - *Warfarin and/or parental anticoagulation education - *Follow up date to check INR post discharge At least 5 days overlap therapy as Inpatient No Meds if any: Prescribed or Continued at Discharge Note: Overlap Therapy is Warfarin and Anticoagulant Meds if any: NOT Prescribed or Continued at Discharge
--- NOTE | 2018-01-29 07:10 | Discharge Summary ---
Visit Information Visit Dates Admission Date: 01/25/18 Discharge Date: 01/29/18 Hospital Course Course Attending Physician: Ashanti Contreras MD Primary Care Physician: Hadley Lawson MD Hospital Course: 42 year old male with a past medical history significant for asthma, possible ADHD on stimulants, possible seizure disorder, benzodiazepine dependence >10 years presented to the emergency department with visual/auditory hallucinations and insomnia that started for days after abrupt cessation of benzodiazepines. His doctor lost his privileges and he found and alternative benzodiazepine Etizolam, that he purchased over the internet. He became tremors, anxious, diaphoretic and experinced palpitations, insomnia, and paranoid delusions. He was admitted and treated for acute paranoid psychosis in the setting of benzodiazepine withdrawal and dependence. He also reportedly took mescaline because he was told it is similar to etizolam. He was started on valium four times a day and required sedation with intravenous ativan for his psychosis. He had a patient safety monitor and psychiatry was consulted. Once his condition and psychosis improved, valium was rapidly tapered to 10mg PO BID with a plan to taper further as an outpatient. He was also started on lexapro 10mg and buspar 5mg po bid. He was advised to discontinue all stimulant medications. Once medically stable, he was discharged home with outpatient psychiatry follow up at 8:15AM February [address] [place], [place] [address] with Harriet Teixeira LCSW. Allergies: Coded Allergies: NO KNOWN ALLERGIES (03/15/14) Disposition Summary Disposition Principal Diagnosis: Acute paranoid psychosis in the setting of benzodiazepine dependence and withdrawal Substance abuse Additional Diagnosis: Reported history of ADHD Mild intermittent asthma Discharge Disposition: home or self care Discharge Instructions General Discharge Information Code Status: Full Code Patient's Diet: Regular diet Patient's Activity: As tolerated Follow-Up Instructions/Appts: Please follow up with your primary care physician and outpatient psychiatry appointment at [facility] 8:15 am February 09 at [facility] Biju Teixeira LCSW Medications at Discharge Discharge Medications: Stop taking the following medications: Dextroamphetamine/Amphetamine (Dextroamp-Amphetamin 30 MG Tab) 30 MG TABLET ORAL TWICE DAILY Qty = 60 Bupropion HCl (Bupropion XL) 150 MG TAB.ER.24H ORAL Every Morning Qty = 90 Continue taking these medications: Albuterol Sulfate (Proventil Hfa) 90 MCG HFA.AER.AD 2 Puff Inhale through mouth Every 4 hours as needed for SHORTNESS OF BREATH Qty = 7 Comments: NOT GIVEN Budesonide/Formoterol Fumarate (Symbicort 160-4.5 Mcg Inhaler) 160 MCG-4.5 MCG/ ACTUATION HFA.AER.AD 2 Puff Inhale through mouth TWICE DAILY Qty = 10 Comments: Last Taken: 01/29/18 Time: 0830 Start taking the following new medications: Diazepam (Valium) 10 MG TABLET 1 Tablet ORAL TWICE DAILY Qty = 24 No Refills Comments: Last Taken: 01/29/18 Time: 0830 Escitalopram Oxalate (Lexapro) 10 MG TABLET 1 Tablet ORAL DAILY Qty = 30 No Refills Instructions: . Comments: Last Taken: 01/29/18 Time: 0930 Buspirone HCl (Buspirone HCl) 5 MG TABLET 1 Tablet ORAL TWICE DAILY Qty = 60 No Refills Instructions: . Comments: Last Taken: 01/29/18 Time: 0830 Copies To: Renny HUYNH,Hadley Landaverde MD Review Statement Documenting Attending: Ashanti Contreras MD
[2018-01-29] MEDS ORDERED: VALIUM10 M1 PO (08:33)
[2018-01-29] MEDS ORDERED: LEXAPRO10 M1 PO (09:17)
[2018-01-29] MEDS ORDERED: BUSPIRONE HCL5 M1 PO (09:17)
== END 2018-01-29 11:00 | DRG 772 ==
LOC: ERH 12:21 → 2NB 19:46 → ERHI 19:46 → ENRESERV 22:30 → ENTRNSPT 22:43 → EDTRNSPT 22:47 → EDTRNSPTSTS 22:47 → 2NB 23:02 → CMPTRNSPT 23:04 → 2NB 01-26 15:04 → ENPENDDIS 01-29 09:20 → ENTRNSPT 01-29 10:43 → EDTRNSPT 01-29 10:48 → EDTRNSPTSTS 01-29 10:48 → 2NB 01-29 11:00 → CMPTRNSPT 01-29 11:17
PROVIDERS: Physician Assistant
PROC: HZ2ZZZZ Detoxification Services for Substance Abuse Treatment (ICD-10-PCS; principal; 2018-01-25)
PROC: HZ99ZZZ Pharmacotherapy for Substance Abuse Treatment, Other Replacement Medication (ICD-10-PCS; principal; 2018-01-25)
DX: F19.231 Other psychoactive substance dependence with withdrawal delirium (principal); F41.9 Anxiety disorder, unspecified; F90.9 Attention-deficit hyperactivity disorder, unspecified type; R44.0 Auditory hallucinations; R00.0 Tachycardia, unspecified; F32.9 Major depressive disorder, single episode, unspecified; J45.909 Unspecified asthma, uncomplicated; Z79.51 Long term (current) use of inhaled steroids
CPT/HCPCS: 2NBSP; 36415; 36592; 80307; 82436; 93005; 93010; 96374; G0480; J1650; J1885; J3360; J3490